=== PATIENT | female | born 1970 | race Caucasian/White ===

== ENCOUNTER → 2017-09-05 | Outpatient (CLI) | payer BC ==
[~2017-09-05] MED LIST: ACET-1256 PO; METR500T PO; ONDA4TAB10 SL; OPTIRAY 320 IV PRN; SACC250C PO
[2017-09-05 14:35] LABS: BASO % 0.7 %; BASO ABS # 0.06 K/uL (0-0.2); EOS % 0.9 %; EOS ABS # 0.08 K/uL (0-0.5); HEMATOCRIT 42.8 % (37-47); HEMOGLOBIN 14.6 g/dL (12.0-16.0); IG# 0.02 K/uL (0.00-0.02); LYMPH % 13.2 %; LYMPH ABS # 1.16 K/uL (1.2-3.4); MEAN CELL VOLUME 93.4 fL (80-100); MEAN CORPUSCULAR HEMOGLOBIN 31.9 pg (25-34); MEAN CORPUSCULAR HGB CONC 34.1 g/dl (32-36); MEAN PLATELET VOLUME 10.4 fL (7.4-10.4); MONO % 9.4 %; MONO ABS # 0.83 K/uL (0.11-0.59); NEUT % 75.6 %; NEUT ABS # 6.67 K/uL (1.4-6.5); PLATELET COUNT 254 K/uL (130-400); RED CELL DISTRIBUTION WIDTH CV 12.4 % (11.5-14.5); RED CELL DISTRIBUTION WIDTH SD 41.8 fL (36.4-46.3); WHITE BLOOD COUNT 8.82 K/uL (4.8-10.8)
[2017-09-05 15:37] LABS: ALBUMIN 3.8 gm/dl (3.4-5.0); ALT/SGPT 18 U/L (12-78); AST/SGOT 17 U/L (15-37); BLOOD UREA NITROGEN 7 mg/dl (7-18); CALCIUM 9.1 mg/dl (8.5-10.1); CARBON DIOXIDE 25 mmol/L (21-32); CREATININE 0.78 mg/dl (0.60-1.20); GLUCOSE 110 mg/dl (70-99); LIPASE 67 U/L (73-393); POTASSIUM 3.4 mmol/L (3.5-5.1); SODIUM 134 mmol/L (136-145)
--- NOTE | 2017-09-05 15:37 | DIAGNOSTIC IMAGING REPORT ---
ABD/PELVIS IV AND ORAL CONT CT DOSE: 235.04 mGy.cm HISTORY: Pain. Nausea. R10.84,R19.7 TECHNIQUE: Multiaxial CT images of the abdomen and pelvis were performed following the use of intravenous and oral contrast. A dose lowering technique was utilized adhering to the principles of ALARA. COMPARISON STUDY: None. FINDINGS: The lung bases are clear. The liver, spleen, gallbladder, pancreas, kidneys, and adrenal glands are within normal limits. No bowel wall thickening or obstruction. The pelvic region demonstrates a normal-appearing appendix. There is a 3.6 cm right ovarian cyst. Uterus demonstrates endometrial thickening at 1.7 cm. Cervix appears complex and thickened with a maximum diameter of 5.5 cm. Pelvic ultrasonography is suggested. There is trace amount of free fluid within the pelvic cul-de-sac possibly physiologic. There is a 1.6 cm left ovarian cyst. IMPRESSION: 1. Normal appendix. 2. Normal bowel pattern. 3. Right ovarian cyst measuring 3.6 cm. 4. Left ovarian cyst measuring 1.6 cm. 5. Distinct prominence of the cervix at 5.5 cm maximum diameter. It appears complex. Pelvic ultrasonography is suggested as follow-up. The above report was generated using voice recognition software. It may contain grammatical, syntax or spelling errors. Electronically signed by: Edmar Mccurdy M.D. 09/05/2017 3:36 PM Dictated Date/Time: 09/05/2017 3:29 PM
[2017-09-05 15:40] LABS: ALKALINE PHOSPHATASE 84 U/L (45-117); TOTAL PROTEIN 8.6 gm/dl (6.4-8.2)
== END | disposition home or self-care (01) ==
LOC: C.CTS 12:46
PROVIDERS: ATTEND Family Medicine
DX: N83.201 Unspecified ovarian cyst, right side (principal); N83.202 Unspecified ovarian cyst, left side; R10.84 Generalized abdominal pain; R19.7 Diarrhea, unspecified

== ENCOUNTER 2017-09-07 08:41 | Emergency (ER) | payer BC ==
[~2017-09-07] VITALS: Ht 167.6 cm; Wt 50.1 kg
[2017-09-07 08:49] VITALS: TEMP 36.7; O2SAT 95; Ht 167.6 cm; Wt 50.1 kg
[2017-09-07] MEDS ORDERED: SACC250C PO (09:21)
[2017-09-07] MEDS ORDERED: ACET-1256 PO (09:21)
[2017-09-07] MEDS ORDERED: METR500T PO (09:21)
--- NOTE | 2017-09-07 09:42 | EMERGENCY ROOM VISIT NOTE ---
History First contact with patient: 09:23 Chief Complaint: DIARRHEA Stated Complaint: DIARRHEA,DIAGNOSED ON 09/06 WITH C DIFF Nursing Triage Summary: dx with c diff yesterday pt is pale pt started on flagyl yesterday pt has had diarrhea since Aug 22 no n/v 10 loose stools per day History of Present Illness The patient is a 47 year old female who presents to the Emergency Room with complaints of diarrhea since August 22. She reports she was given Augmentin for a sinus infection on August 20, developed diarrhea on the and was diagnosed with C. diff on 09/06/2017 and started on Flagyl on the same day. She reports her diarrhea has worsened, and that from 6PM to 6AM she is up 2-3 times an hour with diarrhea. She also reports constant cramping in the lower region of her abdomen, which has now settled down to a 2-3/10 in severity. She has been trying to keep up with her fluid intake but reports she feels dehydrated. She has been taking daily probiotics. Review of Systems See HPI for pertinent positives & negatives. A total of 10 systems reviewed and were otherwise negative. Past Medical/Surgical History Medical Problems: (1) Sinus abscess Social History Smoking Status: Never Smoker Current/Historical Medications Scheduled Acetaminophen (Tylenol), 500 MG PO Q6 Metronidazole (Flagyl), 500 MG PO TID Saccharomyces Boulardii (Florastor), 1 CAP PO DAILY Physical Exam Vital Signs Date Time Temp Pulse Resp B/P (MAP) Pulse Ox O2 Delivery O2 Flow Rate FiO2 09/07/17 08:49 36.7 87 20 107/72 95 Room Air Physical Exam HEENT: Head - normocephalic and atraumatic. Nose - moist nasal mucosa without discharge. Mouth - moist buccal mucosa. Oropharynx is nonerythematous and there is no tonsillar exudate or edema noted. Heart: Regular rate and rhythm. There is a normal S1 and S2 with no murmurs, clicks, or gallops appreciated. Lungs: Clear to auscultation bilaterally with no wheezes, rales, or rhonchi. Abdomen: Soft, tender in lower abdomen, nondistended, with good bowel sounds. There are no palpable pulsatile masses or hepatosplenomegaly. There is no guarding, rigidity, or rebound noted. Extremities: No evidence of cyanosis, clubbing, or edema. There are easily palpable peripheral pulses. Neuro:The patient is awake and alert, oriented to day, time, and place. Medical Decision & Procedures Laboratory Results 09/07/17 10:30 Test 09/07/17 10:30 Anion Gap 5.0 mmol/L (3-11) Est Creatinine Clear Calc Drug Dose 74.5 ml/min Estimated GFR () 112.9 Estimated GFR (Non- 97.4 BUN/Creatinine Ratio 6.9 (10-20) Calcium Level 8.7 mg/dl (8.5-10.1) Medications Administered Medications (Trade) Dose Ordered Sig/Rodrigo Route Start Time Stop Time Status Last Admin Dose Admin Lactated Ringer's 1,000 ml @ 999 mls/hr Q1H1M ONCE IV 09/07/17 10:15 09/07/17 11:15 DC 09/07/17 10:37 999 MLS/HR ED Course 9:23: The patient was evaluated in room A2. A complete history and physical exam was performed. 9:45: The case was discussed with the attending doctor, Dr. Patel. 10:00: 1L Ringer's Lactate at 999 mls/hr ordered. 10:20: 4mg IV zofran ordered 11:25: The patient was reassessed. She is resting comfortably in bed and denies any needs at this time. A GI follow up appointment was made for her and she is agreeable to discharge and follow up in the outpatient setting. Medical Decision Ms. Mesa is a 47 year old female who presented to the emergency department due to severe diarrhea secondary to her c.diff infection. She expressed concerns that she was dehydrated and was unable to keep up with her fluid requirements. She is on day 2 of Flagyl. Her electrolytes were within normal limits, aside from a slightly low potassium of 3.3. She was given a 1L bolus of IV ringer's lactate and 4mg of IV zofran for her nausea. She requested an appointment with a GI specialist and one was made for her on Monday. Her vital signs were within normal limits, she was not complaining of any pain, and was felt to be stable for discharge with outpatient follow up. She will be discharged for zofran to use as needed Impression Primary Impression: C. difficile diarrhea Departure Information Dispostion Home / Self-Care Prescriptions Ondasetron Odt (ZOFRAN ODT) 4 Mg Tab 4 MG SL Q6H for Nausea for 10 Days, #40 TAB Prov: Alfred Holden M.D. 09/07/17 Referrals Johnson Sierra DO (PCP) Patient Instructions My [facility] [address] Additional Instructions You came to [facility] with severe diarrhea that is secondary to a c. diff infection. We checked your electrolytes here, and your potassium was on the lower side, but the rest of the electrolytes were within normal limits. We gave you 1L of IV fluids and a zofran injection for nausea. We will be discharging you with sublingual zofran for you to use as needed for nausea. You are on the right antibiotic for your infection, but unfortunately, it can take up to a week for your symptoms to catarina. Please follow up with the GI doctor on Monday, and continue to take your antibiotic and drink plenty of fluids in the meantime. Resident Tracking Resident Involvement: Resident Care Provided Care Provided: Adult ED
[2017-09-07] MEDS ORDERED: LACTATED RINGER'S 1000ML 1,000 ML IV ONE (10:15)
[2017-09-07] MEDS ORDERED: ONDANSETRON INJ 2 MG/ML 2 ML VIAL IV STA (10:18)
--- NOTE | 2017-09-07 10:45 | EMERGENCY ROOM VISIT NOTE ---
History Report prepared by Diane: Walter Keys Under the Supervision of: Dr. Reinier Patel D.O. First contact with patient: 09:16 Chief Complaint: DIARRHEA Stated Complaint: DIARRHEA,DIAGNOSED ON 09/06 WITH C DIFF Nursing Triage Summary: dx with c diff yesterday pt is pale pt started on flagyl yesterday pt has had diarrhea since Aug 22 no n/v 10 loose stools per day History of Present Illness The patient is a 47 year old female who presents to the Emergency Room with complaints of constant diarrhea since August 22, 2017 [employer]. She notes an average of 10 diarrheal episodes a day. Over the last night, she has had 2 to 3 episodes every hour. She feels that she is dehydrated and she notes abdominal pain. She currently rates her pain a 2/10 in severity. She was recently treated for a sinus infection August 20, 2017 and was prescribed Augmentin. She notes that she only completed seven of the 10 day treatment. She states that her diarrheal episodes began two days later and has worsened since then. She was diagnosed with C. diff yesterday and prescribed Flagyl. She notes that she has been trying to keep up with her fluids. She is on daily probiotics. She denies any fever, nausea, and vomiting. Review of outpatient CT scan showed: Normal appendix, bilateral ovarian cysts, and thickened cervix. Her CBC was normal. Kidney function was normal. Chemistry panel was unremarkable. C. diff was positive. Source of History: patient Onset: August 22, 2017 [employer] Position: other (global ) Symptom Intensity: 2/10 Quality: other (diarrhea) Timing: constant Associated Symptoms: + abdominal pain, No fevers, No nausea, No vomiting Review of Systems See HPI for pertinent positives & negatives. A total of 10 systems reviewed and were otherwise negative. Past Medical & Surgical Medical Problems: (1) Sinus abscess Family History Cancer Diabetes mellitus Gallbladder disease Heart disease Hypertension Social History Smoking Status: Never Smoker Smokeless Tobacco Use: No Alcohol Use: occasionally Drug Use: none Marital Status: Housing Status: lives with significant other Occupation Status: employed Current/Historical Medications Scheduled Acetaminophen (Tylenol), 500 MG PO Q6 Metronidazole (Flagyl), 500 MG PO TID Ondasetron Odt (Zofran Odt), 4 MG SL Q6H Saccharomyces Boulardii (Florastor), 1 CAP PO DAILY Allergies Coded Allergies: No Known Allergies (Unverified , 09/07/17) per [employer] Physical Exam Vital Signs Date Time Temp Pulse Resp B/P (MAP) Pulse Ox O2 Delivery O2 Flow Rate FiO2 09/07/17 12:37 70 16 112/82 09/07/17 11:51 92/51 09/07/17 08:49 36.7 87 20 107/72 95 Room Air Physical Exam CONSTITUTIONAL/VITAL SIGNS: Reviewed / noted above. GENERAL: Non-toxic in appearance. INTEGUMENTARY: Warm, dry, and [place]. HEAD: Normocephalic. EYES: without scleral icterus or trauma. ENT/OROPHARYNX: clear and moist. LYMPHADENOPATHY/NECK: Is supple without lymphadenopathy or meningismus. RESPIRATORY: Lungs clear and equal. CARDIOVASCULAR: Regular rate and rhythm. GI/ABDOMEN: Soft and nontender. No organomegaly or pulsatile mass. No rebound or guarding. Normal bowel sounds. EXTREMITIES: Warm and well perfused. BACK: No CVA tenderness. NEUROLOGICAL: Intact without focal deficits. PSYCHIATRIC: normal affect. MUSCULOSKELETAL: Normally developed with good muscle tone. Medical Decision & Procedures Laboratory Results 09/07/17 10:30 Test 09/07/17 10:30 Anion Gap 5.0 mmol/L (3-11) Est Creatinine Clear Calc Drug Dose 74.5 ml/min Estimated GFR () 112.9 Estimated GFR (Non- 97.4 BUN/Creatinine Ratio 6.9 (10-20) Calcium Level 8.7 mg/dl (8.5-10.1) Laboratory results as stated above per my review. Medications Administered Medications (Trade) Dose Ordered Sig/Rodrigo Route Start Time Stop Time Status Last Admin Dose Admin Lactated Ringer's 1,000 ml @ 999 mls/hr Q1H1M ONCE IV 09/07/17 10:15 09/07/17 11:15 DC 09/07/17 10:37 999 MLS/HR Ondansetron HCl (Zofran Inj) 4 mg NOW STAT IV 09/07/17 10:18 09/07/17 10:59 DC 09/07/17 12:20 4 MG ED Course 1000: Previous medical records were reviewed. The patient was evaluated in room A2. A complete history and physical examination was performed. 1015: Lactated Ringer's 1,000 ml @ 999 mls/hr IV 1018: Ordered Zofran 4 mg IV 1115: I spoke with Karen, case management. We discussed the patient's case. The patient will be discharged home. Medical Decision Prior records/ancillary studies reviewed. Triage Nursing notes reviewed. Additional history obtained from the family. The patient's history was concerning for nausea, vomiting, diarrhea, and abdominal pain. Differential diagnosis: Etiologies such as gastroenteritis, food borne illness, infections, appendicitis , diverticulitis, inflammatory bowel disease, obstruction, GI bleed, biliary pathology, as well as others were entertained. This is a 47-year-old female who presents to the ED with a chief complaint of diarrhea. The patient states that she was taking some Augmentin for a sinus infection. Her last dose was August 28. She developed some diarrhea on August 22 and felt it might be related to the antibiotics. She did not complete the entire course of antibiotics. The patient states that since August 28, she has had regular diarrhea. She had a CAT scan of her abdomen and pelvis yesterday as well as a stool test that showed positive C. difficile. The patient was started on Flagyl yesterday by her PCP. She has had continued symptoms. She came in thinking she was dehydrated. She does not want pain medication. She does report a little nausea related to Flagyl intake. The patient is had 2 doses of Flagyl. She denies any other significant symptoms. Physical exam reveals mild discomfort in the lower abdomen. The patient was treated with IV fluids and given some IV Zofran. She did not want pain medication. The patient was treated. She was advised to continue the Flagyl. The patient was given an appointment for Monday to see a GI specialist for follow-up. Case management help with this. She is felt to be stable for discharge. Medication Reconcilliation Current Medication List: was personally reviewed by me Blood Pressure Screening Patient's blood pressure: Normal blood pressure Impression Primary Impression: C. difficile diarrhea Scribe Attestation The scribe's documentation has been prepared under my direction and personally reviewed by me in its entirety. I confirm that the note above accurately reflects all work, treatment, procedures, and medical decision making performed by me. Departure Information Dispostion Home / Self-Care Prescriptions Ondasetron Odt (ZOFRAN ODT) 4 Mg Tab 4 MG SL Q6H for Nausea for 10 Days, #40 TAB Prov: Tarmohamed, Zenovia ., M.D. 09/07/17 Referrals Johnson Sierra DO (PCP) Forms HOME CARE DOCUMENTATION FORM, IMPORTANT VISIT INFORMATION, WORK / SCHOOL INSTRUCTIONS Patient Instructions My [facility] Additional Instructions You came to [facility] with severe diarrhea that is secondary to a c. diff infection. We checked your electrolytes here, and your potassium was on the lower side, but the rest of the electrolytes were within normal limits. We gave you 1L of IV fluids and a Zofran injection for nausea. We will be discharging you with sublingual zofran for you to use as needed for nausea. You are on the right antibiotic for your infection, but unfortunately, it can take up to a week for your symptoms to catarina. Please follow up with the GI doctor on Monday, and continue to take your antibiotic and drink plenty of fluids in the meantime.
[2017-09-07 11:07] LABS: CALCIUM 8.7 mg/dl (8.5-10.1); CREATININE 0.73 mg/dl (0.60-1.20); POTASSIUM 3.3 mmol/L (3.5-5.1)
[2017-09-07] MEDS ORDERED: ONDA4TAB10 SL (11:39)
[2017-09-07 12:37] VITALS: BP 112/82; PULSE 70
== END 2017-09-07 12:20 | disposition home or self-care (01) ==
LOC: C.EDB 08:43 → C.EDA 12:20
DX: A04.72 Enterocolitis due to Clostridium difficile, not specified as recurrent (principal); Z80.9 Family history of malignant neoplasm, unspecified; Z83.3 Family history of diabetes mellitus; Z83.79 Family history of other diseases of the digestive system; Z82.49 Family history of ischemic heart disease and other diseases of the circulatory system

== ENCOUNTER → 2017-09-11 | Outpatient (CLI) | payer BC ==
[~2017-09-11] MED LIST changes: -OPTIRAY 320 IV PRN
--- NOTE | 2017-09-11 16:05 | DIAGNOSTIC IMAGING REPORT ---
ULTRASOUND OF THE PELVIS CLINICAL HISTORY: Ovarian cyst. COMPARISON STUDY: Pelvic CT dated 09/05/2017. TECHNIQUE: Real-time, grayscale, and color flow sonography of the pelvis is performed both transabdominally and endovaginally. Images are reviewed in the transverse and longitudinal planes. FINDINGS: Uterus: The retroverted uterus is normal in size and echotexture, measuring 9.0 x 5.2 x 5.9 cm. Numerous nabothian cysts are present in the cervix. Endometrium: The endometrium is thickened and heterogeneous, measuring up to 1.9 cm. Ovaries: The ovaries are normal in size and morphology. The right ovary measures 4.7 x 3.7 x 4.2 cm and the left ovary measures 2.6 x 1.6 x 1.6 cm. There is a 3.9 cm simple cyst identified in the right ovary. Additional follicles are seen bilaterally. Normal Doppler waveforms are shown within both ovaries. Pelvis: There is no free fluid in the cul-de-sac. No concerning adnexal lesion is seen. IMPRESSION: 1. No acute sonographic abnormality is identified in the pelvis. 2. There is a 3.9 cm simple appearing right ovarian cyst. Normal Doppler waveforms are shown in both ovaries. 3. The endometrial stripe is thickened measuring up to 1.9 cm. This may be related to the phase of the patient's cycle. Clinical correlation will be required. Electronically signed by: Bigg Simeon M.D. 09/11/2017 4:04 PM Dictated Date/Time: 09/11/2017 4:02 PM
== END | disposition home or self-care (01) ==
LOC: C.ULTR 14:20
PROVIDERS: ATTEND Family Medicine
DX: N83.201 Unspecified ovarian cyst, right side (principal)

== ENCOUNTER → 2017-09-19 | Outpatient (CLI) | payer BC ==
[~2017-09-19] MED LIST changes: -ONDA4TAB10 SL
== END | disposition home or self-care (01) ==
LOC: C.PATHSPEC 13:39
PROVIDERS: ATTEND Obstetrics & Gynecology
DX: N93.8 Other specified abnormal uterine and vaginal bleeding (principal)